=== PATIENT | female | born 1975 | race Caucasian/White ===

== ENCOUNTER 2017-03-02 15:56 | Emergency (ER) | payer OTHER ==
[~2017-03-02] VITALS: Ht 160 cm; Wt 85.0 kg
[2017-03-02] MEDS ORDERED: nitroGLYCERIN 1gm ointment UD TP ONE (16:10)
[2017-03-02] MEDS ORDERED: aspirin 81mg tab.chew PO ONE (16:10)
[2017-03-02 16:31] LABS: BASOPHILS % (AUTO) 0.5 % (0-1); EOSINOPHILS # (AUTO) 0.2 X10'3 (0-0.9); EOSINOPHILS % (AUTO) 3.1 % (0-6); HEMATOCRIT 38.7 % (35.0-45.0); HEMOGLOBIN 13.6 g/dl (12.0-16.0); LYMPHOCYTES # (AUTO) 2.5 X10'3 (1.1-4.8); LYMPHOCYTES % (AUTO) 33.4 % (21-51); MEAN CORPUSCULAR HEMOGLOBIN 29.8 PG (27.0-31.0); MEAN CORPUSCULAR HGB CONC 35.3 % (33.0-36.5); MEAN CORPUSCULAR VOLUME 84.5 FL (78-98); MEAN PLATELET VOLUME 7.3 FL (7.4-10.4); MONOCYTES # (AUTO) 0.5 X10'3 (0-0.9); MONOCYTES % (AUTO) 6.9 % (2-12); NEUTROPHILS # (AUTO) 4.3 X10'3 (1.8-7.7); NEUTROPHILS % (AUTO) 56.1 % (42-75); PLATELET COUNT 306 X10'3 (140-440); RED BLOOD COUNT 4.58 X10'6 (4.20-5.60); WHITE BLOOD COUNT 7.6 X10'3 (4.5-11.0)
[2017-03-02 16:42] LABS: PARTIAL THROMBOPLASTIN TIME 28 SECONDS (22-32); PROTHROMBIN TIME 9.9 SECONDS (9.0-12.0)
[2017-03-02 16:53] LABS: ALANINE AMINOTRANSFERASE 26 U/L (12-78); ALBUMIN 4.3 G/DL (3.4-5.0); ALBUMIN/GLOBULIN RATIO 1.3 (1.1-1.5); ALKALINE PHOSPHATASE 72 IU/L (46-116); ANION GAP 9 (8-16); ASPARTATE AMINO TRANSFERASE 15 U/L (10-37); BILIRUBIN,TOTAL 0.3 MG/DL (0.1-1.0); BLOOD UREA NITROGEN 17 MG/DL (7-18); BUN/CREATININE RATIO 18.9 (6.6-38.0); CALCIUM 8.9 MG/DL (8.5-10.1); CHLORIDE 105 MMOL/L (99-107); GLUCOSE 97 MG/DL (70-104); MAGNESIUM 1.9 MG/DL (1.5-2.4); POTASSIUM 4.3 MMOL/L (3.5-5.1); SODIUM 143 MMOL/L (135-145); TOTAL CARBON DIOXIDE 29.3 MMOL/L (24-32); TOTAL PROTEIN 7.7 G/DL (6.4-8.2); eGFR 68 ML/MIN
[2017-03-02] MEDS ORDERED: HYDR25TA4 PO (18:03)
[2017-03-02] MEDS ORDERED: NITR0.4T51 SL (18:03)
[2017-03-02 18:12] VITALS: BP 148/77
== END 2017-03-02 18:16 | disposition home or self-care (01) ==
LOC: ER 15:56
DX: I10 Essential (primary) hypertension (principal); R07.9 Chest pain, unspecified; Z90.49 Acquired absence of other specified parts of digestive tract
CPT/HCPCS: 36415; 80053; 83735; 83880; 84484; 85025; 85610; 85730; 93005; 99285